=== PATIENT | male | born 1995 | race Two or more races ===

== ENCOUNTER 2024-11-16 20:08 | Emergency (ER) | payer MEDICAID ==
[~2024-11-16] VITALS: Ht 172.7 cm; Wt 82.0 kg
[2024-11-16 20:11] VITALS: O2SAT 98
[2024-11-16] MEDS: SODIUM CHLORIDE 0.9% 1,000 ML IV ONE (21:51)
[2024-11-16] MEDS: ONDANSETRON HCL 4MG/2ML INJ IV ONE (21:52)
[2024-11-16] MEDS: KETOROLAC 15MG/ML VIAL IV ONE (21:52)
[2024-11-16 22:00] VITALS: BP 134/91; PULSE 108; RESP 20; TEMP 37.2; O2SAT 97
== END 2024-11-16 22:25 | disposition home or self-care (01) ==
LOC: ER 20:08
DX: F10.129 Alcohol abuse with intoxication, unspecified (principal); F12.90 Cannabis use, unspecified, uncomplicated; R07.9 Chest pain, unspecified; Y90.9 Presence of alcohol in blood, level not specified
CPT/HCPCS: 93005; 96361; 96374; 96375; 99284; J1885; J2405; J7030; Z7610

== ENCOUNTER 2024-11-18 20:48 | Emergency (ER) | payer MEDICAID ==
[~2024-11-18] VITALS: Ht 167.6 cm; Wt 75.0 kg
[2024-11-18 20:54] VITALS: O2SAT 97
[2024-11-18 21:29] LABS: BASOPHILS % 2.0 % (0.0-2.0); EOSINOPHILS % 0.1 % (0.0-5.0); HEMATOCRIT. 46.2 % (42.0-52.0); HEMOGLOBIN. 15.9 g/dL (14.0-18.0); LYMPHOCYTES % 25.2 % (20.0-50.0); MEAN PLATELET VOLUME 6.7 fl (7.4-10.4); MONOCYTES % 4.2 % (2.0-8.0); NEUTROPHILS % 68.5 % (40.0-76.0); PLATELET 365 x1000/uL (130-400); RED BLOOD CELL COUNT 4.91 mill/uL (4.7-6.1); RED CELL DISTRIBUTION WIDTH 14.5 % (11.6-14.6)
[2024-11-18 21:41] LABS: CREATININE 0.9 mg/dL (0.6-1.3)
[2024-11-18 21:42] LABS: UREA NITROGEN BLOOD 8 mg/dL (9-23)
[2024-11-18] MEDS: FOLIC ACID 1 MG, THIAMINE HCL 100 MG, MVI, ADULT NO.1 10 ML in DEXTROSE 5% WATER 1,000 ML IV ONE (21:42)
[2024-11-18 21:43] LABS: ASPARTATE AMINOTRANSFERASE 61 IU/L (<34)
[2024-11-18 21:44] LABS: BILIRUBIN DIRECT 0.2 mg/dL (<=3.0); BILIRUBIN TOTAL 1.0 mg/dL (0.1-1.0); PROTEIN TOTAL 7.7 g/dL (6.0-8.3)
[2024-11-18 21:56] LABS: ETHANOL BLOOD 611 mg/dL (<10)
[2024-11-18 22:44] VITALS: TEMP 37.1
[2024-11-19 00:45] VITALS: BP 133/85; PULSE 121; RESP 22; O2SAT 95
== END 2024-11-19 01:36 | disposition short-term general hospital (02) ==
LOC: ER 20:48 → CMPBEDREQ 11-19 07:27
DX: F10.129 Alcohol abuse with intoxication, unspecified (principal); Z79.899 Other long term (current) drug therapy; Y90.9 Presence of alcohol in blood, level not specified
CPT/HCPCS: 80076; 80048; 80320; 83735; 85025; 36415; 96365; 96366; 99285; J3490 ×2; J3411; J7070; Z7610; A4606; G0480

== ENCOUNTER 2025-02-06 12:57 | Inpatient (IN) | payer OTHER ==
[~2025-02-06] VITALS: Ht 180.3 cm; Wt 68.9 kg
[2025-02-06 13:02] VITALS: O2SAT 100
[2025-02-06] MEDS: SODIUM CHLORIDE 0.9% 1,000 ML IV ONE (13:15)
[2025-02-06 13:43] LABS: HEMATOCRIT. 41.2 % (42.0-52.0); HEMOGLOBIN. 14.1 g/dL (14.0-18.0); MEAN PLATELET VOLUME 7.8 fl (7.4-10.4); PLATELET 295 x1000/uL (130-400); RED BLOOD CELL COUNT 4.32 mill/uL (4.7-6.1); RED CELL DISTRIBUTION WIDTH 14.2 % (11.6-14.6)
[2025-02-06 13:56] LABS: CREATININE 0.8 mg/dL (0.6-1.3)
[2025-02-06 13:57] LABS: PROTEIN TOTAL 7.3 g/dL (6.0-8.3); UREA NITROGEN BLOOD 5 mg/dL (9-23)
[2025-02-06 13:58] LABS: ASPARTATE AMINOTRANSFERASE 21 IU/L (<34); BILIRUBIN DIRECT 0.6 mg/dL (<=3.0)
[2025-02-06 13:59] LABS: BILIRUBIN TOTAL 2.1 mg/dL (0.1-1.0)
[2025-02-06 14:04] LABS: INR 1.0
[2025-02-06] MEDS: ONDANSETRON HCL 4MG/2ML INJ IV ONE (14:16)
[2025-02-06] MEDS: MORPHINE SULFATE 4 MG/ML INJ (FOR IV/IM USE) IV ONE (14:17)
[2025-02-06] MEDS ORDERED: MAGNESIUM 2 G PREMIX 50 ML IV ONE (15:15)
[2025-02-06 18:06] LABS: LYMPHOCYTES % MANUAL 8.0 % (20.0-50.0); MONOCYTES % MANUAL 4.0 % (2.0-8.0); NEUTROPHILS % MANUAL 88.0 % (45.0-75.0)
[2025-02-06 18:07] LABS: PLATELET ESTIMATE NORMAL
[2025-02-06] MEDS: MAGNESIUM 2 G PREMIX 50 ML IV NR (18:28)
[2025-02-06] MEDS ORDERED: IOHEXOL-300 100 ML BOTTLE ONE (22:52)
[2025-02-06] MEDS ORDERED: NALOXONE HCL 0.4MG/ML VIAL IV PRN (23:45)
[2025-02-06] MEDS ORDERED: T3 PO (23:57)
[2025-02-07] VITALS (7 sets, daily range): BP systolic 102–137; BP diastolic 55–92; PULSE 65–95; RESP 18–20; TEMP 36.4–37.3; O2SAT 99–100
[2025-02-07] MEDS ORDERED: ZOLPIDEM TARTRATE 5MG TABLET PO PRN
[2025-02-07] MEDS ORDERED: MAGNESIUM/ALUMINUM HYDROXIDE/SIMETHICONE 30ML UDC PO PRN
[2025-02-07] MEDS ORDERED: ACETAMINOPHEN 325MG TABLET PO PRN
[2025-02-07] MEDS ORDERED: CLONIDINE 0.1MG TABLET PO PRN
[2025-02-07] MEDS: CEFTRIAXONE 1GM/50ML 50 ML IV SCH (00:22)
[2025-02-07] MEDS: SODIUM CHLORIDE 0.9% 1,000 ML IV SCH (00:22)
[2025-02-07] MEDS ORDERED: *PATIENT'S OWN MEDICATION STORAGE XX SCH (04:15)
[2025-02-07 06:51] LABS: BASOPHILS % 0.6 % (0.0-2.0); EOSINOPHILS % 0.4 % (0.0-5.0); HEMATOCRIT. 33.5 % (42.0-52.0); HEMOGLOBIN. 11.3 g/dL (14.0-18.0); LYMPHOCYTES % 25.0 % (20.0-50.0); MEAN PLATELET VOLUME 8.2 fl (7.4-10.4); MONOCYTES % 13.3 % (2.0-8.0); NEUTROPHILS % 60.7 % (40.0-76.0); PLATELET 226 x1000/uL (130-400); RED BLOOD CELL COUNT 3.51 mill/uL (4.7-6.1); RED CELL DISTRIBUTION WIDTH 14.3 % (11.6-14.6)
[2025-02-07 07:08] LABS: CREATININE 0.7 mg/dL (0.6-1.3); UREA NITROGEN BLOOD < 5 mg/dL (9-23)
[2025-02-07 07:09] LABS: PROTEIN TOTAL 5.8 g/dL (6.0-8.3)
[2025-02-07 07:10] LABS: ASPARTATE AMINOTRANSFERASE 14 IU/L (<34); BILIRUBIN DIRECT 0.8 mg/dL (<=3.0); BILIRUBIN TOTAL 2.5 mg/dL (0.1-1.0)
[2025-02-07 08:15] LABS: *AMPHETAMINES SCREEN URINE NEGATIVE (NEGATIVE); *BARBITURATES SCREEN URINE NEGATIVE (NEGATIVE); *BENZODIAZEPINES SCREEN URINE PRESUMPTIVE POSITIVE (NEGATIVE); *COCAINE SCREEN URINE NEGATIVE (NEGATIVE)
[2025-02-07 08:16] LABS: CANNABINOID URINE SCREEN PRESUMPTIVE POSITIVE (NEGATIVE); ECSTASY MDMA SCREEN URINE NEGATIVE (NEGATIVE); METHADONE URINE SCREEN NEGATIVE (NEGATIVE); OPIATES URINE SCREEN PRESUMPTIVE POSITIVE (NEGATIVE); PHENCYCLIDINE URINE SCREEN NEGATIVE (NEGATIVE)
[2025-02-07 08:17] LABS: CLARITY URINE CLEAR (CLEAR); COLOR URINE YELLOW (YELLOW); GLUCOSE URINE NEGATIVE (NEGATIVE); KETONES URINE 1+ (NEGATIVE); LEUKOCYTE ESTERASE URINE NEGATIVE (NEGATIVE); NITRITE URINE NEGATIVE (NEGATIVE); OCCULT BLOOD URINE NEGATIVE (NEGATIVE); PH URINE 5.5 (4.5-8.0); PROTEIN URINE NEGATIVE (NEGATIVE); SPECIFIC GRAVITY URINE 1.051 (1.005-1.030); UROBILINOGEN URINE 0.2 E.U./dL (0.2-1.0)
[2025-02-07] MEDS: ENOXAPARIN 40MG/0.4ML SYR SUBCUT SCH (10:31)
[2025-02-07] MEDS: PANTOPRAZOLE SODIUM 40 MG/VIAL IV SCH (10:59)
[2025-02-07] MEDS ORDERED: BUPIVACAINE HCL/PF 0.5% (5MG/ML) 10ML ONE (13:23)
[2025-02-07] MEDS ORDERED: PROPOFOL 200MG/20ML VIAL IV ONE ×2 (14:02→16:46)
[2025-02-07] MEDS ORDERED: FENTANYL CITRATE/PF 50MCG/ML 2ML VIAL ONE (14:02)
[2025-02-07] MEDS ORDERED: MIDAZOLAM HCL 2 MG/2 ML VIAL ONE (14:02)
[2025-02-07] MEDS ORDERED: ROCURONIUM BROMIDE 10MG/ML VIAL 5ML IV ONE (14:04)
[2025-02-07] MEDS ORDERED: CEFAZOLIN SODIUM 1000MG/VIAL ONE (14:06)
[2025-02-07] MEDS ORDERED: SUCCINYLCHOLINE CHLORIDE 200MG/10ML IV ONE (14:06)
[2025-02-07] MEDS ORDERED: HYDROMORPHONE HCL/PF 2MG/ML INJ ONE (14:50)
[2025-02-07] MEDS ORDERED: HYDROMORPHONE HCL/PF 1MG/ML INJ IV PRN (15:00)
[2025-02-07] MEDS ORDERED: MEPERIDINE HCL/PF 25MG/ML CPJ IV PRN (15:00)
[2025-02-07] MEDS ORDERED: LABETALOL 5MG/ML 4ML INJ IV PRN (15:00)
[2025-02-07] MEDS ORDERED: ONDANSETRON HCL 4MG/2ML INJ IV PRN ×3 (15:00→17:30)
[2025-02-07] MEDS ORDERED: FAMOTIDINE 20MG/2ML VIAL IV PRN (15:00)
[2025-02-07] MEDS ORDERED: ACETAMINOPHEN 1,000MG/100ML PREMIX IV PRN (15:00)
[2025-02-07] MEDS ORDERED: HYDRALAZINE 20MG/ML VIAL IV PRN ×2 (15:00)
[2025-02-07] MEDS ORDERED: HYDROCODONE/ACETAMINOPHEN 5/325MG TABLET PO PRN ×2 (17:30)
[2025-02-07] MEDS ORDERED: MORPHINE SULFATE 2 MG/ML INJ (NOT FOR IM USE) IV PRN ×2 (17:30)
[2025-02-07] MEDS ORDERED: MORPHINE SULFATE 4 MG/ML INJ (FOR IV/IM USE) IV PRN (17:30)
[2025-02-07] MEDS: DEXT 5%/0.45% NACL KCL 20MEQ/L 1,000 ML IV SCH (22:16)
[2025-02-07] MEDS: SODIUM CHLORIDE 0.9% 3ML FLUSH IVF SCH (22:16)
[2025-02-08] VITALS: BP 114/60; PULSE 67; RESP 20; TEMP 36.5; O2SAT 100
[2025-02-08 07:09] LABS: BASOPHILS % 1.8 % (0.0-2.0); EOSINOPHILS % 1.3 % (0.0-5.0); HEMATOCRIT. 30.0 % (42.0-52.0); HEMOGLOBIN. 10.3 g/dL (14.0-18.0); LYMPHOCYTES % 24.2 % (20.0-50.0); MEAN PLATELET VOLUME 8.0 fl (7.4-10.4); MONOCYTES % 12.3 % (2.0-8.0); NEUTROPHILS % 60.4 % (40.0-76.0); PLATELET 207 x1000/uL (130-400); RED BLOOD CELL COUNT 3.17 mill/uL (4.7-6.1); RED CELL DISTRIBUTION WIDTH 14.1 % (11.6-14.6)
[2025-02-08 07:11] LABS: CREATININE 0.7 mg/dL (0.6-1.3); UREA NITROGEN BLOOD < 5 mg/dL (9-23)
[2025-02-08 08:30] VITALS: BP 131/76; PULSE 86; RESP 20; TEMP 36.4; O2SAT 100
[2025-02-08 12:25] VITALS: BP 137/87; PULSE 78; RESP 19; TEMP 36.4; O2SAT 99
[2025-02-08] MEDS ORDERED: DOCU-138 MT (13:47)
[2025-02-08] MEDS ORDERED: CEPH500T MT (13:47)
[2025-02-08] MEDS: HYDROCODONE/ACETAMINOPHEN 5/325MG TABLET PO PRN (13:55)
[2025-02-08 16:00] VITALS: BP 132/82; PULSE 82; RESP 19; TEMP 36.4; O2SAT 99
[2025-02-08 20:00] VITALS: BP 109/62; PULSE 58; RESP 16; TEMP 36.6; O2SAT 98
[2025-02-09] VITALS: BP 121/80; PULSE 77; RESP 16; TEMP 36.7; O2SAT 99
[2025-02-09 04:00] VITALS: BP 102/56; PULSE 60; RESP 18; TEMP 36.7; O2SAT 98
[2025-02-09 07:55] LABS: CREATININE 0.7 mg/dL (0.6-1.3); UREA NITROGEN BLOOD 6 mg/dL (9-23)
[2025-02-09 07:59] LABS: BASOPHILS % 1.2 % (0.0-2.0); EOSINOPHILS % 3.0 % (0.0-5.0); HEMATOCRIT. 31.1 % (42.0-52.0); HEMOGLOBIN. 10.7 g/dL (14.0-18.0); LYMPHOCYTES % 27.3 % (20.0-50.0); MEAN PLATELET VOLUME 7.8 fl (7.4-10.4); MONOCYTES % 11.9 % (2.0-8.0); NEUTROPHILS % 56.6 % (40.0-76.0); PLATELET 226 x1000/uL (130-400); RED BLOOD CELL COUNT 3.25 mill/uL (4.7-6.1); RED CELL DISTRIBUTION WIDTH 13.9 % (11.6-14.6)
[2025-02-09 08:00] VITALS: BP 100/68; PULSE 80; RESP 18; TEMP 36.5; O2SAT 100
[2025-02-09 11:14] VITALS: BP 100/68; PULSE 80; RESP 18; TEMP 97.7
[2025-02-09 12:00] VITALS: BP 123/72; PULSE 74; RESP 18; TEMP 36.6; O2SAT 100
== END 2025-02-09 13:40 | disposition home or self-care (01) | DRG 793 ==
LOC: ER 12:57 → 8WST 18:15 → UNDOADMIN 18:15 → 8WST 18:43 → EDBEDREQTM 18:45 → EDBEDREQ 18:45 → ENRESERV 23:05
PROVIDERS: ADMIT Internal Medicine; ATTEND Internal Medicine
PROC: 0WCP0ZZ Extirpation of Matter from Gastrointestinal Tract, Open Approach (ICD-10-PCS; principal; 2025-02-07)
PROC: 0W9G30Z Drainage of Peritoneal Cavity with Drainage Device, Percutaneous Approach (ICD-10-PCS; 2025-02-07)
DX: K91.841 Postprocedural hemorrhage of a digestive system organ or structure following other procedure (principal); E80.6 Other disorders of bilirubin metabolism; S30.11XA Contusion of abdominal wall, initial encounter; K46.9 Unspecified abdominal hernia without obstruction or gangrene; X58.XXXA Exposure to other specified factors, initial encounter; G89.18 Other acute postprocedural pain; Y93.89 Activity, other specified; Y92.89 Other specified places as the place of occurrence of the external cause; Y99.8 Other external cause status
CPT/HCPCS: 36415; 74177; 76700; 80048; 80076; 80305; 81003; 82962; 83735; 84443; 85025; 86850; 86900; 93970; 96361; 96365; 96375; 99291; J0330; J0665; J0690; J0696; J1171; J1308; J1650; J2250; J2270; J2405; J2470; J2704; J3010; J3475; J3490; J7030; Q9967; J0131